=== PATIENT | male | born 1990 | race Caucasian/White ===

== ENCOUNTER → 2016-05-13 | Outpatient (CLI) | payer OTHER ==
--- NOTE | 2016-05-14 02:30 | MR ---
EXAMINATION TYPE: MR knee RT wo con DATE OF EXAM: 05/13/2016 5:38 PM COMPARISON: NONE HISTORY: Pain in right knee TECHNIQUE: Multiplanar, multisequence imaging of the right knee is performed without IV contrast. FINDINGS: The anterior and posterior cruciate ligaments are intact. There is a mild knee joint effusion. The me dial and lateral menisci appear intact. The collateral ligaments appear intact. There is no evidence for fracture. I see no bony destructive process. Joint spaces are fairly normal. IMPRESSION: No evidence of meniscal or ligamentous tear. Mild knee joint effusion.
== END | disposition home or self-care (01) ==
LOC: RADMRIMAIN 16:55
PROVIDERS: ATTEND Orthopaedic Surgery
DX: M25.461 Effusion, right knee (principal)